=== PATIENT | male | born 1960 | race Caucasian/White ===

== ENCOUNTER 2017-12-11 11:31 | Inpatient (IN) | payer BC, OTHER ==
[2017-12-11] MEDS ORDERED: Lactated Ringers 1,000 ML IV SCH (13:00)
[2017-12-11] MEDS ORDERED: Ondansetron 4 MG/2 ML SDV IVPUSH ONE (13:00)
[2017-12-11] MEDS ORDERED: fentaNYL 100 MCG/2 ML SDV IVPUSH ONE ×2 (13:00→13:38)
--- NOTE | 2017-12-11 13:02 | EDM.PDOC ---
ED HPI GENERAL MEDICAL PROBLEM - General Chief Complaint: Abdominal Pain Stated Complaint: STOMACH PAINS Time Seen by Provider: 12/11/17 13:01 Source of Information: Reports: Patient, Family, RN Notes Reviewed History Limitations: Reports: No Limitations - History of Present Illness INITIAL COMMENTS - FREE TEXT/NARRATIVE: 57-year-old gentleman presents to the emergency department today with complaint of abdominal pain, he states the pain has been developing for the last 24 hours worse this morning with nausea and vomiting pain is constant, no history of abdominal surgeries medical history of COPD, still passing gas no chest pain no shortness of breath beyond baseline Right Lower Abdominal Pain Score (Numeric/FACES): 10 - Related Data Allergies Allergy/AdvReac Type Severity Reaction Status Date / Time propoxyphene HCl AdvReac Vomiting Verified 12/11/17 12:53 [From Darmanuelan] Home Meds: Home Meds Albuterol Sulfate [Proair Hfa] 1 puff INH ASDIRECTED 12/11/17 [History] Tiotropium [Spiriva Handihaler] 2 puff INH DAILY 12/11/17 [History] Past Medical History Respiratory History: Reports: COPD Social & Family History - Tobacco Use Smoking Status *Q: Current Every Day Smoker ED ROS GENERAL - Review of Systems Review Of Systems: See Below Constitutional: Reports: No Symptoms HEENT: Reports: No Symptoms Respiratory: Reports: No Symptoms Cardiovascular: Reports: No Symptoms GI/Abdominal: Reports: Abdominal Pain, Flatus, Nausea, Vomiting : Reports: No Symptoms Musculoskeletal: Reports: No Symptoms Skin: Reports: No Symptoms Neurological: Reports: No Symptoms ED EXAM, GI/ABD - Physical Exam Exam: See Below Text/Narrative:: General: Male, moderate discomfort secondary to pain, alert and oriented x3 HEENT: head is atraumatic normocephalic, eyes pupils equal round reactive to light, sclera clear no conjunctivitis appreciated. Ears tympanic membranes clear and ang[place] landmarks and light reflex are present bilaterally canals are clear. Nose no septal deviation, nares are clear, no blood present. Mouth mucosa is moist and pink no erythema or exudate noted in soft palate, tongue is midline uvula is midline, dentition is intact. Neck: Supple no thyromegaly no tracheal deviation. Nodes: Cervical nodes subclavicular nodes nontender no palpable lymphadenopathy noted. Lungs: clear to auscultation bilaterally with symmetrical respirations, no adventitious noise appreciated. CV: Regular rate and rhythm S1 and S2 appreciated no murmurs rubs or gallops noted. Abdomen: Soft, tenderness to palpation right lower quadrant, no palpable masses or organomegaly appreciated, no distention no guarding bowel sounds are present , positive psoas sign, obturator sign, heeltap is negative. Neuro: Cranial nerves II through XII grossly intact Skin: Warm and dry, intact Extremities: No lower extremity edema appreciated, pedal pulse is +2. Course - Vital Signs Last Recorded V/S: Last Vital Signs Temp 97.2 F 12/11/17 12:50 Pulse 73 12/11/17 13:46 Resp 14 12/11/17 13:46 BP 167/83 H 12/11/17 13:46 Pulse Ox 96 12/11/17 13:46 - Orders/Labs/Meds Orders: Active Orders 24 hr Category Date Time Status Peripheral IV Care [RC] . DIRECTED Care 12/11/17 12:59 Active UA W/MICROSCOPIC [URIN] Urgent Lab 12/11/17 12:59 Ordered Lactated Ringers [Ringers, Lactated] 1,000 ml Med 12/11/17 13:00 Active IV ASDIRECTED Sodium Chloride 0.9% [Saline Flush] Med 12/11/17 12:59 Active 10 ml FLUSH ASDIRECTED PRN Peripheral IV Insertion Adult [OM.PC] Urgent Oth 12/11/17 12:59 Ordered Medication Orders Lactated Ringer's (Ringers, Lactated) 1,000 mls @ 500 mls/hr IV ASDIRECTED KOFFI Last Admin: 12/11/17 13:32 Dose: 500 mls/hr Sodium Chloride (Saline Flush) 10 ml FLUSH ASDIRECTED PRN PRN Reason: Keep Vein Open Last Admin: 12/11/17 13:23 Dose: 10 ml Admin: 12/11/17 13:09 Dose: 10 ml Labs: Laboratory Tests 12/11/17 12/11/17 12/11/17 Range/Units 13:04 13:04 13:04 WBC 16.2 H (4.5-11.0) K/uL RBC 4.86 (4.30-5.90) M/uL Hgb 14.4 (12.0-15.0) g/dL Hct 42.1 (40.0-54.0) % MCV 87 (80-98) fL MCH 30 (27-31) pg MCHC 34 (32-36) % Plt Count 304 (150-400) K/uL Neut % (Auto) 85 H (36-66) % Lymph % (Auto) 8 L (24-44) % [place] % (Auto) 6 (2-6) % Eos % (Auto) 0 L (2-4) % Baso % (Auto) 0 (0-1) % Sodium 135 L (140-148) mmol/L Potassium 3.6 (3.6-5.2) mmol/L Chloride 101 (100-108) mmol/L Carbon Dioxide 25 (21-32) mmol/L Anion Gap 12.6 (5.0-14.0) mmol/L BUN 13 (7-18) mg/dL Creatinine 1.0 (0.8-1.3) mg/dL Est Cr Clr Drug Dosing 92.48 mL/min Estimated GFR (MDRD) > 60 (>60) Glucose 105 (74-106) mg/dL Lactic Acid 0.9 (0.4-2.0) mmol/L Calcium 8.4 L (8.5-10.1) mg/dL Total Bilirubin 1.0 (0.2-1.0) mg/dL AST 16 (15-37) U/L ALT 27 (12-78) U/L Alkaline Phosphatase 82 (46-116) U/L Troponin I < 0.017 (0.000-0.056) ng/mL Total Protein 7.3 (6.4-8.2) g/dL Albumin 3.4 (3.4-5.0) g/dL Globulin 3.9 H (2.3-3.5) g/dL Albumin/Globulin Ratio 0.9 L (1.2-2.2) Lipase 56 L (73-393) U/L Meds: Medications Generic Name Dose Route Start Last Admin Trade Name Freq PRN Reason Stop Dose Admin Lactated Ringer's 1,000 mls @ 500 mls/hr 12/11/17 13:00 12/11/17 13:32 Ringers, Lactated IV 500 mls/hr ASDIRECTED KOFFI Administration Sodium Chloride 10 ml 12/11/17 12:59 12/11/17 13:23 Saline Flush FLUSH 10 ml ASDIRECTED PRN Administration Keep Vein Open Discontinued Medications Generic Name Dose Route Start Last Admin Trade Name Alicia PRN Reason Stop Dose Admin Fentanyl 50 mcg 12/11/17 13:00 12/11/17 13:07 Sublimaze IVPUSH 12/11/17 13:01 50 mcg ONETIME ONE Administration Fentanyl 50 mcg 12/11/17 13:38 12/11/17 13:44 Sublimaze IVPUSH 12/11/17 13:39 50 mcg ONETIME ONE Administration Sodium Chloride 85 mls @ 3.5 mls/sec 12/11/17 13:15 12/11/17 13:23 Normal Saline IV 12/11/17 14:00 3.5 mls/sec ASDIRECTED KOFFI Administration Iopamidol 137 ml 12/11/17 13:08 12/11/17 13:24 Isovue-300 (61%) IV 12/11/17 14:00 137 ml . DIRECTED PRN Administration RADIOLOGY EXAM Ondansetron HCl 4 mg 12/11/17 13:00 12/11/17 13:05 Zofran IVPUSH 12/11/17 13:01 4 mg ONETIME ONE Administration Sodium Chloride 10 ml 12/11/17 13:15 12/11/17 13:33 Saline Flush FLUSH 12/11/17 14:00 10 ml ONETIME KOFFI Administration Departure - Departure Time of Disposition: 14:05 Disposition: Home, Self-Care 01 Condition: Good Clinical Impression: Appendicitis Qualifiers: Appendicitis type: acute appendicitis Acute appendicitis type: with localized peritonitis Qualified Code(s): K35.3 - Acute appendicitis with localized peritonitis - Discharge Information Referrals: Dylon Bain MD [Primary Care Provider] - Forms: ED Department Discharge - My Orders Last 24 Hours: My Active Orders 12/11/17 12:59 Peripheral IV Care [RC] . DIRECTED UA W/MICROSCOPIC [URIN] Urgent Sodium Chloride 0.9% [Saline Flush] 10 ml FLUSH ASDIRECTED PRN Peripheral IV Insertion Adult [OM.PC] Urgent 12/11/17 13:00 Lactated Ringers [Ringers, Lactated] 1,000 ml IV ASDIRECTED - Assessment/Plan Last 24 Hours: My Active Orders 12/11/17 12:59 Peripheral IV Care [RC] . DIRECTED UA W/MICROSCOPIC [URIN] Urgent Sodium Chloride 0.9% [Saline Flush] 10 ml FLUSH ASDIRECTED PRN Peripheral IV Insertion Adult [OM.PC] Urgent 12/11/17 13:00 Lactated Ringers [Ringers, Lactated] 1,000 ml IV ASDIRECTED Plan: Assessment Acuity = acute Site and laterality = acute appendicitis complicated patient with known history of chronic instructed pulmonary disease Etiology = unclear etiology Manifestations = nausea, vomiting, abdominal pain Location of injury = Home Lab values = WBC elevated 16.2 consistent with leukocytosis, CMP unremarkable, troponin negative CT scan described acute appendicitis but Plan Called discussed case with Dr. Dooley general surgery he agreed to evaluate the patient for surgical intervention This note was dictated using [employer] voice recognition software please call with any questions on syntax or grammar.
[2017-12-11] MEDS ORDERED: Iopamidol 612 MG/ML 150 ML Bottle IV PRN (13:08)
[2017-12-11] MEDS: Sodium Chloride 0.9% 10 ML Syringe FLUSH PRN ×2 (13:09→13:23)
[2017-12-11] MEDS ORDERED: Sodium Chloride 0.9% 10 ML Syringe FLUSH SCH (13:15)
--- NOTE | 2017-12-11 13:58 | CT ---
Abdomen Pelvis w Cont INDICATION: RLQ pain COMPARISON: None. FINDINGS: Dilated, fluid-filled appendix measuring 17 mm in greatest transverse dimension extends med ially and superiorly from the cecum. There are mild surrounding inflammatory changes. Findings consis tent with acute appendicitis. No evidence for abscess. Thickening of the wall of the lateral aspect o f the gallbladder with mild surrounding inflammatory changes is nonspecific. Recommend further evalua tion with ultrasound. Small bilateral renal cysts. Arterial calcifications. Exam otherwise unremarkab le. IMPRESSION: 1. Acute appendicitis. No abscess. 2. Thickening of the wall of the lateral aspect of the gallbladder with mild surrounding inflammatory changes is nonspecific. Recommend follow-up right upper quadrant ultrasound.
[2017-12-11] MEDS ORDERED: Ondansetron 4 MG/2 ML SDV IVPUSH PRN (14:07)
[2017-12-11] MEDS ORDERED: Albuterol/Ipratropium 3.0-0.5 MG/3 ML Neb Soln NEB PRN (14:07)
[2017-12-11] MEDS ORDERED: fentaNYL 250 MCG/5 ML SDV ONE (14:49)
[2017-12-11] MEDS ORDERED: Succinylcholine 200 MG/10 ML MDV ONE (14:52)
[2017-12-11] MEDS ORDERED: Ondansetron 4 MG/2 ML SDV ONE (14:52)
[2017-12-11] MEDS ORDERED: Propofol 200 MG/20 ML SDV ONE (14:52)
[2017-12-11] MEDS ORDERED: Neostigmine Methylsulfate 1 MG/ML 5 ML Syringe ONE (14:52)
[2017-12-11] MEDS ORDERED: Glycopyrrolate 0.2 MG/ML 5 ML MDV ONE (14:52)
[2017-12-11] MEDS ORDERED: Rocuronium 50 MG/5 ML Vial ONE (14:52)
[2017-12-11] MEDS ORDERED: Dexamethasone 4 MG/ML SDV ONE (14:52)
[2017-12-11] MEDS ORDERED: Aztreonam/Dextrose-Water 1 GM in Premix Bag 1 BAG IV ONE (14:59)
[2017-12-11] MEDS ORDERED: Ampicillin/Sulbactam Na 3 GM in Sodium Chloride 0.9% 100 ML IV ONE (14:59)
[2017-12-11] MEDS ORDERED: Bupivacaine 0.5%/EPINEPHrine 1:200,000 50 ML MDV ONE (15:20)
[2017-12-11] MEDS: HYDROmorphone/Normal Saline 15 MG/30 ML PCA IV PRN (15:28)
[2017-12-11] MEDS ORDERED: Meropenem 500 MG SDV ONE ×2 (16:08→16:38)
[2017-12-11] MEDS ORDERED: Meropenem 500 MG in Sodium Chloride 0.9% 50 ML IV ONE (17:30)
[2017-12-11] MEDS ORDERED: hydrOXYzine HCl 100 MG/2 ML SDV IM PRN (19:23)
[2017-12-11] MEDS ORDERED: Albuterol/Ipratropium 3.0-0.5 MG/3 ML Neb Soln INH PRN (19:25)
[2017-12-11] MEDS ORDERED: Dextrose 5%-Lactated Ringers 1,000 ML IV SCH (19:30)
[2017-12-11] MEDS: Albuterol/Ipratropium 3.0-0.5 MG/3 ML Neb Soln INH SCH (20:32)
[2017-12-11] MEDS: Ampicillin/Sulbactam Na 3 GM in Sodium Chloride 0.9% 100 ML IV SCH (20:32)
[2017-12-11] MEDS: Tamsulosin 0.4 MG Cap.ER PO SCH (20:32)
[2017-12-11] MEDS: Meropenem 500 MG in Sodium Chloride 0.9% 50 ML IV SCH (22:52)
[2017-12-12] MEDS: Ampicillin/Sulbactam Na 3 GM in Sodium Chloride 0.9% 100 ML IV SCH ×4 (02:06→21:42)
[2017-12-12] MEDS: Meropenem 500 MG in Sodium Chloride 0.9% 50 ML IV SCH ×4 (05:30→23:10)
[2017-12-12] MEDS: Dextrose 5%-Lactated Ringers 1,000 ML IV SCH ×2 (08:36→21:46)
[2017-12-12] MEDS: Aztreonam/Dextrose-Water 1 GM in Premix Bag 1 BAG IV SCH ×2 (08:46→16:31)
[2017-12-12] MEDS: Albuterol/Ipratropium 3.0-0.5 MG/3 ML Neb Soln INH SCH ×4 (09:14→21:42)
[2017-12-12] MEDS: Tiotropium Inhaler 18 MCG Inhalation Powder Cap Kit of 5 INH SCH (09:58)
--- NOTE | 2017-12-12 10:47 | PN ---
DATE OF SERVICE: 12/12/2017 SUBJECTIVE: Joe is postop day #1, following a laparoscopic appendectomy. His pain is controlled. NICOLASA has put out 5 and 10 mL. He did get up and sit in the chair around 0200 hours. Afebrile. REVIEW OF SYSTEMS: Remainder of review of systems negative for any pertinent positives and negatives. OBJECTIVE: GENERAL: Joe Duong is a 57-year-old male. He is alert and orientated. VITAL SIGNS: TPR 97.1, 71, 16, and blood pressure 134/80. HEENT: Negative. NECK: Supple. HEART: Regular rate and rhythm. LUNGS: Clear. ABDOMEN: Dressings dry and intact. Abdominal binder is on. EXTREMITIES: Without peripheral edema and Parry catheter is in place. ASSESSMENT: Laparoscopic appendectomy. PLAN: 1. Decrease IV to 100 mL/hour. 2. Remain n.p.o. with ice chips only. 3. Remove packing of left upper quadrant trocar site. 4. Discontinue Parry. 5. Good pulmonary toilet. 6. We will evaluate p.r.n. or in a.m. Ntaacha Smith PA-C /[id number]
[2017-12-12] MEDS: Tamsulosin 0.4 MG Cap.ER PO SCH (21:42)
[2017-12-13] MEDS: Aztreonam/Dextrose-Water 1 GM in Premix Bag 1 BAG IV SCH ×3 (00:22→16:06)
[2017-12-13] MEDS: Ampicillin/Sulbactam Na 3 GM in Sodium Chloride 0.9% 100 ML IV SCH ×4 (03:33→21:36)
[2017-12-13] MEDS: Meropenem 500 MG in Sodium Chloride 0.9% 50 ML IV SCH ×4 (05:28→23:41)
[2017-12-13] MEDS: Albuterol/Ipratropium 3.0-0.5 MG/3 ML Neb Soln INH SCH ×4 (07:29→21:38)
[2017-12-13] MEDS: Tiotropium Inhaler 18 MCG Inhalation Powder Cap Kit of 5 INH SCH (07:29)
--- NOTE | 2017-12-13 08:23 | PN ---
DATE OF SERVICE: 12/13/2017 SUBJECTIVE: Joe states his pain is controlled. NICOLASA drains have put out 10 mL and 10 mL of a light pink serosanguineous drainage. He has been up ambulating and is not passing any flatus. REVIEW OF SYSTEMS: Remainder of review of systems negative for any pertinent positives and negatives. OBJECTIVE: GENERAL: Joe Duong is a 57-year-old male. He is postop day #2, sitting up in bed, alert, orientated. VITAL SIGNS: TPR is 97.7, 74, 18. Blood pressure 144/85. HEENT: Negative. NECK: Supple. HEART: Regular rate and rhythm. LUNGS: Clear. ABDOMEN: Dressings dry and intact. Abdominal binder is on. EXTREMITIES: Without peripheral edema. SCDs have been on. ASSESSMENT: Diagnostic laparotomy with drainage and irrigation of the abdomen and pelvis, partial cecectomy including removal of overlying appendix, drainage of pericolonic abscess, drainage of right subphrenic abscess, for perforated appendicitis with necrosis extending to cecum, pericolonic abscess with purulent collection over lower abdomen and pelvis extending to pericolon to segment of the right subphrenic abscess. Date of surgery, 12/11/2017. PLAN: 1. Clear liquid diet, no tray, may have coffee. 2. Dulcolax 2 tabs p.o. b.i.d. until bowel movement. 3. Senna Plus 2 at bedtime. 4. Dressing off, may shower. 5. We will evaluate p.r.n. or in a.m. Natacha Smith PA-C /[id number]
[2017-12-13] MEDS: Bisacodyl 5 MG Tab PO SCH ×2 (08:52→21:36)
[2017-12-13] MEDS ORDERED: Furosemide 20 MG/2 ML VIAL IVPUSH ONE (21:19)
[2017-12-13] MEDS: Tamsulosin 0.4 MG Cap.ER PO SCH (21:37)
[2017-12-14] MEDS: Aztreonam/Dextrose-Water 1 GM in Premix Bag 1 BAG IV SCH ×4 (00:49→23:08)
[2017-12-14] MEDS: Ampicillin/Sulbactam Na 3 GM in Sodium Chloride 0.9% 100 ML IV SCH (02:37)
[2017-12-14] MEDS: Meropenem 500 MG in Sodium Chloride 0.9% 50 ML IV SCH ×4 (05:05→22:49)
[2017-12-14] MEDS: HYDROmorphone/Normal Saline 15 MG/30 ML PCA IV PRN (05:05)
[2017-12-14] MEDS: Albuterol/Ipratropium 3.0-0.5 MG/3 ML Neb Soln INH SCH ×4 (07:43→21:24)
[2017-12-14] MEDS: Tiotropium Inhaler 18 MCG Inhalation Powder Cap Kit of 5 INH SCH (07:43)
--- NOTE | 2017-12-14 08:29 | PN ---
DATE OF SERVICE: 12/14/2017 SUBJECTIVE: Joe is passing flatus. He remains to be on 3 antibiotics. The culture is back. He did receive 1 dose of Lasix yesterday; had 2 L of urine after the Lasix. NICOLASA drains have put out 120 and 220 respectively of a light pink serosanguineous drainage. REVIEW OF SYSTEMS: Remainder of review of systems negative for any pertinent positives and negatives. OBJECTIVE: GENERAL: Joe Duong is a 57-year-old male. He is alert and orientated, sitting on the edge of the bed. VITAL SIGNS: TPR is 97.7, 87, 16. Blood pressure 142/80. HEENT: Negative. NECK: Supple. HEART: Regular rate and rhythm. LUNGS: Clear. ABDOMEN: Dressings dry and intact. NICOLASA drains x2 intact. EXTREMITIES: Without peripheral edema. ASSESSMENT: Diagnostic laparotomy with drainage and irrigation of the abdomen and pelvis, partial cecectomy including removal of the overlying appendix, drainage of pericolonic abscess, and drainage of right subphrenic abscess, for perforated appendicitis with necrosis extending to the cecum, pericolonic abscess with purulent collection over the lower abdomen and pelvis extending to the pericolon to the right subphrenic area. Date of surgery, 12/11/2017. PLAN: 1. Discontinue Unasyn. 2. Full liquid diet, advanced to regular diet when the patient has bowel movement. 3. Discontinue NICOLASA drain x2. 4. Percocet 5/325 mg 1 to 2 every 4 hours p.r.n. pain. 5. Discontinue METAL SORTER. 6. Discontinue continuous pulse ox. 7. Plan discharge after the patient has bowel movement. The patient will be discharged with Augmentin 875 mg b.i.d. for 5 days; until discharge, we will continue IV antibiotics. 8. Good pulmonary toilet. 9. We will evaluate p.r.n. or in a.m. Natacha Smith PA-C /[id number]
[2017-12-14] MEDS: Bisacodyl 5 MG Tab PO SCH ×2 (09:17→21:17)
[2017-12-14] MEDS: Acetaminophen/oxyCODONE 325-5 MG Tab PO PRN ×3 (11:33→20:35)
[2017-12-14] MEDS ORDERED: Bisacodyl 10 MG Supp RECTAL ONE (16:00)
[2017-12-14] MEDS: Bisacodyl 10 MG Supp RECTAL SCH (21:16)
[2017-12-14] MEDS: Tamsulosin 0.4 MG Cap.ER PO SCH (21:17)
[2017-12-15] MEDS: Meropenem 500 MG in Sodium Chloride 0.9% 50 ML IV SCH ×3 (04:54→16:43)
[2017-12-15] MEDS: Acetaminophen/oxyCODONE 325-5 MG Tab PO PRN ×2 (04:59→10:40)
[2017-12-15] MEDS: Albuterol/Ipratropium 3.0-0.5 MG/3 ML Neb Soln INH SCH ×3 (07:29→14:40)
[2017-12-15] MEDS: Tiotropium Inhaler 18 MCG Inhalation Powder Cap Kit of 5 INH SCH (07:45)
[2017-12-15] MEDS: Aztreonam/Dextrose-Water 1 GM in Premix Bag 1 BAG IV SCH ×2 (07:49→16:43)
[2017-12-15] MEDS ORDERED: Magnesium Citrate Solution 296 ML Bottle PO ONE (09:00)
[2017-12-15] MEDS: Bisacodyl 5 MG Tab PO SCH (09:48)
[2017-12-15] MEDS: Bisacodyl 10 MG Supp RECTAL SCH (09:49)
[2017-12-15 14:22] VITALS: BP 147/88
--- NOTE | 2017-12-16 08:20 | DISCH ---
ADMISSION DIAGNOSES: 1. Acute appendicitis. 2. Chronic obstructive pulmonary disease. 3. History of nicotine addiction. DISCHARGE DIAGNOSES: Diagnostic laparotomy and drainage and irrigation of the abdominal and pelvis, partial cecectomy including removal of the overlying appendix, drainage of pericolonic abscess and drainage of right subphrenic abscess for perforated appendicitis with necrosis extending to the cecum, pericolonic abscess with purulent collection of the lower abdomen and pelvis extending to the pericolon to the right subphrenic area. Date of surgery 12/11/2017. HISTORY: Joe Duogn is a 57-year-old male with right lower quadrant pain. He came to the emergency department, [place], [place]. After preoperative evaluation and discussion of possible risks and possible complications, he agreed to proceed with surgery. Joe had his surgery on 12/11/2017. He had no operative complications. He did remain afebrile. He was on antibiotics and changed to oral pain medication. He did have a bowel stimulation and had a bowel movement on 12/14/2017 and was able to be discharged to home. His vital signs were stable, afebrile. Oral intake and output adequate. Pain was well managed. Activity was good. PHYSICAL EXAMINATION: GENERAL: Joe Duong is a 57-year-old male. VITAL SIGNS: Height 6 feet 2 inches. Weight is 226 pounds. TPR 98.5, 91, 16. Blood pressure 147/88. HEENT: Negative. NECK: Supple. HEART: Regular rate and rhythm. LUNGS: Clear. ABDOMEN: [place] intact. Abdominal binder has been on. EXTREMITIES: Without peripheral edema. DISPOSITION: Discharged to home. CONDITION: Stable and improving. FOLLOWUP: Followup appointment with Buck Dooley MD on 12/20/2017 at 11:00 a.m. HOME MEDICATIONS: 1. Percocet 5/325 mg one to two q.4 hours p.r.n. pain #40. 2. Augmentin 875 mg b.i.d. for 5 days. 3. He is to resume his home medications. DIET: After discharge, usual diet as tolerated, drink 8 to 10 glasses of water a day. ACTIVITY: No lifting over 10 pounds for 6 weeks. Activity, walk inside your home 6 times. Driving, do not drive while on pain medication. May shower. Keep operative site clean and dry. Wear abdominal binder for 2 weeks and then as tolerated. Notify provider if any fever, increased pain, nausea, vomiting, and special instruction, use incentive spirometer 10 times every hour while awake.
--- NOTE | 2017-12-19 07:02 | OR ---
DATE OF PROCEDURE: 12/11/2017 ADDENDUM: Addendum should be added to the details of the procedure as follows: Physician financial planning assistant, Natacha Smith, played an essential role in assisting in this case, helping to position the patient, retract structures as needed, as well as suturing and cutting sutures when indicated. Her presence improved patient safety and decreased the operative time. Buck Dooley MD /[id number]
--- NOTE | 2017-12-19 15:16 | OR ---
RDATE OF PROCEDURE: 12/11/2017 PREOPERATIVE DIAGNOSIS: Acute appendicitis. POSTOPERATIVE DIAGNOSES: 1. Perforated appendicitis with necrosis extending on to cecum. 2. Well-defined pericolonic abscess with scattered purulent collections across the lower abdomen and pelvis and extending up into the right pericolic gutter area. 3. Separate well-defined right subphrenic abscess. OPERATIVE PROCEDURE: Diagnostic laparoscopy with drainage of the lower abdomen, pelvis, and, 1. Partial cecectomy including removal of overlying appendix (80777). 2. Drainage of pericolonic abscess (61198). 3. Drainage of right subphrenic abscess (62598). ANESTHESIA: General. RN PRIVATE DUTY: Natacha Smith PA-C. INDICATIONS FOR PROCEDURE: This is a 57-year-old presenting with an acute appendicitis by clinical radiologic workup. Plan is to proceed with a diagnostic laparoscopy, laparotomy if necessary, and appendectomy with other procedures as indicated based on operative findings. Potential risks of the procedure including bleeding, infection, leaks from various GI tract closures, possible problems with postoperative infection and possibility of cardiopulmonary, septic, or hemorrhagic complications leading to were discussed, and the patient wishes to proceed. DETAILS OF PROCEDURE: The patient was taken to the operating room and placed in a supine position. After general endotracheal anesthesia was induced, the abdomen was prepped and draped, a Parry catheter was also inserted. Beginning in the area through and through and superior and to the left of the umbilicus, a transverse incision was made and the peritoneal cavity entered under direct vision with an Optiview trocar inflated to 15 mmHg pressure with CO2. Laparoscope was reinserted. No underlying trocar insertion site injuries were seen. Following this, eventually 4 additional trocars were placed in the mid and lower abdomen. As one initially examined the appendix, there was noted to be necrotic with the necrosis extending up onto the base of the cecum. There were multiple areas of purulent collection in the lower abdomen, basically infracolic area, extending into the pelvis and then extending somewhat onto the right pericolic area. Adjacent to the appendix, there was a well-defined abscess, which at that point had been walled off. It was opened and cultures obtained from that area. The appendix was then mobilized upward and the distal cecum below the ileocecal valve was then excised at a plane where the tissue appeared to be reasonably soft and it would allow adequate staple formation. This included removal of some of the cecal base and more or less flush with the ileocecal valve extending laterally. The mesentery to the removed cecum and the appendix was divided with Harmonic scalpel and the specimen placed in a specimen bag and retrieved through the left lower quadrant trocar site. At this point, when we looked up toward the right diaphragm and was noted to bring up some inoculation to have a second well-defined abscess in the left subphrenic area. Cultures of this were also obtained and at that point, the systematic evaluation of all of inner-loop areas, beginning at the ligament of Treitz, extending down into the ileocecal valve was undertaken. These were initially all evacuated and the fluid also evacuated from the pelvis with retraction as needed. A second systematic evaluation was then undertaken. This time irrigating with total of 2 L of meropenem-containing saline solution. Once that area appeared to be saturated and washed out, 2 Gato-Crespo drains and were then placed along the pericolic gutter area into the abscess in the lower pericolonic area on the right side and from there into the pelvis and a second drain placed up along the right pericolic gutter and into the right subphrenic space. At that point, no further problems noted. Trocars removed. The fascia at the 12 mm trocar site was closed with 0 Vicryl stitch. packed open with an Iodoform gauze on the skin and subcutaneous tissue level and the drain was sutured to the skin with some 4-0 Vicryl stitch. The patient was taken to the recovery room in satisfactory condition. There were no evident complications. Physician printer floor covering assistant, Natacha Smith, played an essential role in assisting in this case, helping to position the patient, retract structures as needed, as well as suturing and cutting sutures when indicated. Her presence improved patient safety and decreased operative time. Buck Dooley MD /[id number]
== END 2017-12-15 18:00 | disposition home or self-care (01) | DRG 221 ==
LOC: JP.ED 11:31 → JP.MS 14:07
PROVIDERS: ADMIT Surgery; ATTEND Surgery
PROC: 0DTJ4ZZ Resection of Appendix, Percutaneous Endoscopic Approach (ICD-10-PCS; principal; 2017-12-11)
PROC: 0DBH4ZZ Excision of Cecum, Percutaneous Endoscopic Approach (ICD-10-PCS; 2017-12-11)
PROC: 0W9G4ZX Drainage of Peritoneal Cavity, Percutaneous Endoscopic Approach, Diagnostic (ICD-10-PCS; 2017-12-11)
DX: K35.3 Acute appendicitis with localized peritonitis (principal); K65.1 Peritoneal abscess; K63.0 Abscess of intestine; J44.9 Chronic obstructive pulmonary disease, unspecified; Z87.891 Personal history of nicotine dependence; Z88.8 Allergy status to other drugs, medicaments and biological substances; K55.049 Acute infarction of large intestine, extent unspecified
CPT/HCPCS: 36415; 74177; 74177-26; 80053; 81001; 83605; 83690; 83735; 83880; 84100; 84484; 85025; 85027; 87070; 87075; 87077; 87186; 87205; 88304; 94640; 94640-76; 94664; 94762; 96361; 96374; 96375; 96376; 99285-25; A9270-GY; J0295; J0330; J1100; J1170; J1940; J2185; J2405; J2704; J2710; J3010; J3490; J7030; J7042; J7050; J7120; J7620; S0073

== ENCOUNTER 2021-07-29 07:25 | Day surgery (SDC) | payer BC ==
[2021-07-29] MEDS ORDERED: Dextrose 5%-Lactated Ringers 1,000 ML IV SCH (08:00)
[2021-07-29] MEDS ORDERED: Propofol 200 MG/20 ML SDV ONE ×2 (08:12→09:11)
[2021-07-29] MEDS ORDERED: Midazolam 1 MG/ML 2 ML SDV ONE (08:12)
[2021-07-29] MEDS ORDERED: fentaNYL 100 MCG/2 ML SDV ONE (08:12)
[2021-07-29] MEDS ORDERED: Albuterol/Ipratropium 3.0-0.5 MG/3 ML Neb Soln NEB ONE (08:30)
[2021-07-29 11:23] VITALS: BP 140/90; PULSE 66
--- NOTE | 2021-07-30 07:15 | OR ---
DATE OF PROCEDURE: 07/29/2021 SURGEON: Buck Dooley MD PREOPERATIVE DIAGNOSIS: Indications for screening colonoscopy. POSTOPERATIVE DIAGNOSIS: Left colonic diverticulosis. OPERATIVE PROCEDURE: Flexible colonoscopy. ANESTHESIA: IV sedation. INDICATIONS FOR PROCEDURE: This is a 61-year-old presenting with initial colonoscopy, has no personal or family history of colon neoplasia. Plan is to proceed with a colonoscopy with biopsies and/or polypectomy as indicated. Potential risks including bleeding and perforation were discussed, and the patient wishes to proceed. DETAILS OF PROCEDURE: The patient was taken to the operating room and placed in a left lateral decubitus position. IV sedation was administered after which the initial digital rectal exam was performed and was unremarkable. Colonoscope was then passed into the rectum with retroflexion revealing uncomplicated hemorrhoidal columns. Scope was eventually passed to the level of the cecum. The prep was quite good, only small amount of liquid stool was present. To that level, the patient has some limited amount of uncomplicated left colonic diverticulosis. Otherwise, there are no areas of colitis. No polyps or other signs of neoplasia identified. Scope was then withdrawn and the procedure was then concluded. RECOMMENDATION: Would be to repeat the colonoscopy in 10 years. Buck Dooley MD /[id number]
== END 2021-07-29 10:50 | disposition home or self-care (01) ==
LOC: JP.SDS 07:25
PROVIDERS: ATTEND Surgery
DX: Z12.11 Encounter for screening for malignant neoplasm of colon (principal); K57.30 Diverticulosis of large intestine without perforation or abscess without bleeding; K64.9 Unspecified hemorrhoids; E78.5 Hyperlipidemia, unspecified; Z88.8 Allergy status to other drugs, medicaments and biological substances
CPT/HCPCS: 45378; 94640; J2250; J2704; J3010; J7121; J7620-GY